=== PATIENT | male | born 1980 | race Two or more races ===

== ENCOUNTER 2016-09-28 13:43 | Emergency (ER) | payer OTHER ==
--- NOTE | 2016-09-28 15:44 | ED.ADGEN ---
Past Medical History Past Medical History: No Pertinent History Past Surgical History: Other Additional Past Surgical Histo: right rotator cuff Alcohol Use: None Drug Use: None Adult General Chief Complaint Chief Complaint: ABDOMINAL PAIN HPI HPI Patient is a 36 year old man who presents to the emergency department yet with a complaint of lower abdominal pain that began yesterday. Patient was diagnosed with hernias per report of the correctional officers and the patient. This was a workup performed at the correctional facility, patient has not had any imaging performed per his report. Patient states that his pain has been excruciating since last night, associated with nausea and vomiting yesterday, he has been able to pass stool, but only with a lot of pain. Last bowel movement was yesterday and was normal. He denies any fevers or chills, denies any chest pain or shortness of breath, any injuries, any weakness, numbness or tingling, and his blood any emesis or stool. He has not had previous surgeries on his abdomen. Review of Systems Review of Systems Constitutional: Denies fever or chills. [] Eyes: Denies change in visual acuity. [] HENT: Denies nasal congestion or sore throat. [] Respiratory: Denies cough or shortness of breath. [] Cardiovascular: Denies chest pain or edema. [] GI: Lower quadrant abdominal pain, nausea, vomiting, no bloody stools or diarrhea. : Denies dysuria. [] Musculoskeletal: Denies back pain or joint pain. [] Integument: Denies rash. [] Neurologic: Denies headache, focal weakness or sensory changes. [] Endocrine: Denies polyuria or polydipsia. [] Lymphatic: Denies swollen glands. [] Psychiatric: Denies depression or anxiety. [] Current Medications Current Medications Current Medications Medications (Trade) Dose Ordered Sig/Zack Start Time Stop Time Status Last Admin Dose Admin Dicyclomine HCl (Bentyl) 10 mg 1X ONCE 09/28/16 18:00 09/28/16 18:01 DC Fentanyl Citrate (Fentanyl 2ml Vial) 50 mcg PRN Q15MIN PRN 09/28/16 15:45 09/28/16 18:28 DC 09/28/16 17:49 50 MCG Iohexol (Omnipaque 240 Mg/ml) 30 ml 1X ONCE 09/28/16 16:15 09/28/16 16:16 DC 09/28/16 17:30 30 ML Iohexol (Omnipaque 300 Mg/ml) 75 ml 1X ONCE 09/28/16 16:15 09/28/16 16:16 DC 09/28/16 17:31 75 ML Ondansetron HCl (Zofran) 4 mg 1X ONCE 09/28/16 15:45 09/28/16 15:48 DC 09/28/16 16:10 4 MG Sodium Chloride 1,000 ml @ 1,000 mls/hr 1X ONCE 09/28/16 15:45 09/28/16 16:44 DC 09/28/16 16:09 1,000 MLS/HR Allergies Allergies Allergies Coded Allergies Type Severity Reaction Last Updated Verified No Known Drug Allergies 09/28/16 No Physical Exam Physical Exam Constitutional: Well developed, well nourished, appears uncomfortable, non- toxic appearance. [] HENT: Normocephalic, atraumatic, bilateral external ears normal, oropharynx moist, no oral exudates, nose normal. [] Eyes: PERRLA, EOMI, conjunctiva normal, no discharge. [] Neck: Normal range of motion, no tenderness, supple, no stridor. [] Cardiovascular:Heart rate regular rhythm, no murmur, S1, S2, rubs or gallops. [] Lungs & Thorax: Bilateral breath sounds clear to auscultation, no wheezing, rhonchi, rales. No chest or crepitus or tenderness. [] Abdomen: Bowel sounds normal, soft, patient with tenderness palpation in the bilateral regions, and across the pelvic region, difficult examination secondary to patient compliance with examination, bowel sounds are present in all 4 quadrants, no evidence of hernia and examination, patient noted to have an isolated slightly enlarged lymph node on the right side, which is mobile, minimally tender, approximately 1 cm, no external signs of trauma or abnormalities. Testicular exam unremarkable, patient is circumcised. Skin: Warm, dry, no erythema, no rash. [] Back: No tenderness, no CVA tenderness. [] Extremities: No tenderness, no cyanosis, no clubbing, ROM intact, no edema. [] Neurologic: Alert and oriented X 3, normal motor function, normal sensory function, no focal deficits noted. [] Psychologic: Affect normal, judgement normal, mood normal. [] Current Patient Data Vital Signs Vital Signs Date Time Temp Pulse Resp B/P (MAP) Pulse Ox O2 Delivery O2 Flow Rate FiO2 09/28/16 17:49 22 09/28/16 17:30 64 125/76 (92) 98 Room Air 09/28/16 13:45 98.3 98.3 Lab Values Laboratory Tests Test 09/28/16 14:02 09/28/16 17:15 White Blood Count 8.9 x10^3/uL (4.0-11.0) Red Blood Count 4.86 x10^6/uL (4.30-5.70) Hemoglobin 14.8 g/dL (13.0-17.5) Hematocrit 43.7 % (39.0-53.0) Mean Corpuscular Volume 90 fL (79-100) Mean Corpuscular Hemoglobin 31 pg (25-35) Mean Corpuscular Hemoglobin Concent 34 g/dL (31-37) Red Cell Distribution Width 13.0 % (11.5-14.5) Platelet Count 292 x10^3/uL (140-400) Neutrophils (%) (Auto) 65 % (31-73) Lymphocytes (%) (Auto) 27 % (24-48) Monocytes (%) (Auto) 6 % (0-9) Eosinophils (%) (Auto) 2 % (0-3) Basophils (%) (Auto) 1 % (0-3) Neutrophils # (Auto) 5.8 x10^3uL (1.8-7.7) Lymphocytes # (Auto) 2.4 x10^3/uL (1.0-4.8) Monocytes # (Auto) 0.5 x10^3/uL (0.0-1.1) Eosinophils # (Auto) 0.2 x10^3/uL (0.0-0.7) Basophils # (Auto) 0.0 x10^3/uL (0.0-0.2) Sodium Level 142 mmol/L (136-145) Potassium Level 4.4 mmol/L (3.5-5.1) Chloride Level 105 mmol/L (98-107) Carbon Dioxide Level 29 mmol/L (21-32) Anion Gap 8 (6-14) Blood Urea Nitrogen 17 mg/dL (8-26) Creatinine 0.9 mg/dL (0.7-1.3) Estimated GFR (Cockcroft-Gault) 96.0 BUN/Creatinine Ratio 19 (6-20) Glucose Level 88 mg/dL (70-99) Calcium Level 8.5 mg/dL (8.5-10.1) Total Bilirubin 0.8 mg/dL (0.2-1.0) Aspartate Amino Transferase (AST) 23 U/L (15-37) Alanine Aminotransferase (ALT) 22 U/L (16-63) Alkaline Phosphatase 59 U/L (46-116) Total Protein 7.5 g/dL (6.4-8.2) Albumin 4.1 g/dL (3.4-5.0) Albumin/Globulin Ratio 1.2 (1.0-1.7) Urine Collection Type Unknown Urine Color Yellow Urine Clarity Clear Urine pH 5.5 Urine Specific [place] 1.025 Urine Protein Negative mg/dL (NEG-TRACE) Urine Glucose (UA) Negative mg/dL (NEG) Urine Ketones (Stick) Negative mg/dL (NEG) Urine Blood Negative (NEG) Urine Nitrite Negative (NEG) Urine Bilirubin Negative (NEG) Urine Urobilinogen Dipstick 0.2 mg/dL (0.2 mg/dL) Urine Leukocyte Esterase Negative (NEG) Urine RBC 0 /HPF (0-2) Urine WBC 0 /HPF (0-4) Urine Bacteria 0 /HPF (0-FEW) Urine Mucus Mod /LPF Laboratory Tests 09/28/16 14:02 Laboratory Tests 09/28/16 14:02 EKG EKG Not indicated. [] Radiology/Procedures Radiology/Procedures [][facility] [address] [place], [place] [id number] IMAGING REPORT Signed PATIENT: JOEY OGDEN ACCOUNT: [id number] : 1980 LOCATION: ER AGE: 36 SEX: M EXAM STATUS: REG ER ORD. PHYSICIAN: BRITTANIE CLAUDIO DO REASON: lower abd pain/ inguinal hernia PROCEDURE: CT ABD PELV W/ORAL&IV CONTRAST Indication: Lower abdominal pain and swelling. Axial imaging through the abdomen and pelvis was performed after the administration of intravenous contrast. One or more of the following individualized dose reduction techniques were utilized for this examination: 1. Automated exposure control 2. Adjustment of the mA and/or kV according to patient size 3. Use of iterative reconstruction technique No prior studies are available for comparison. The lung bases are clear. The liver and gallbladder are unremarkable. The pancreas and spleen are unremarkable. No adrenal mass is detected. The kidneys are unremarkable. The aorta is nonaneurysmal. The small and large bowel loops are normal caliber. There is no ascites. The appendix is not well visualized but no inflammatory process is seen. The bladder and prostate are unremarkable. IMPRESSION: Unremarkable CT of the abdomen and pelvis. Electronically signed by: Kasi Pierre MD (09/28/2016 5:48 PM) [facility] DICTATED and SIGNED BY: KASI PIERRE MD DATE: 09/28/161745 CC: BRITTANIE CLAUDIO DO; NO PCP ~ Course & Med Decision Making Course & Med Decision Making Pertinent Labs and Imaging studies reviewed. (See chart for details) Due to patient's complaints and pain, CT imaging of the abdomen and pelvis obtained, reveal any evidence of concerning findings. No hernias, or evidence of entrapment or other abnormalities identified. Laboratory studies were also unremarkable. Patient received pain medication in the ED, had no further no vomiting, but no signs remained within normal limits. I did discuss findings with the patient, I also printed off copies of the CT, and laboratory studies, and patient was also given a follow-up contact with Dr. Pratt of general surgery, instructed correctional facility officers that the patient would need follow-up with surgery for additional evaluation symptoms persist, there is no evidence of any acutely concerning findings at this time. I was not able to identify any hernias that would require reduction in the ED, or any other concerning findings on examination. Although patient is tender in the area, only abnormalities identified with isolated lymph node as stated. I did discuss this with the patient, he voices understanding, as do the correctional officers at bedside. Patient given a prescription for Bentyl and Zofran, to use as needed , also clear and detailed follow-up and return instructions, with which she and correctional officers voiced understanding and agreement. Patient discharged in stable condition with plan as above. Dragon Disclaimer Dragon Disclaimer This electronic medical record was generated, in whole or in part, using a voice recognition dictation system. Departure Impression: Primary Impression: Abdominal pain Disposition: HOME, SELF-CARE Condition: IMPROVED Scripts Dicyclomine Hcl (BENTYL) 10 Mg Capsule 10 MG PO QID Y for ABDOMINAL PAIN, #12 TAB Prov: BRITTANIE CLAUDIO DO 09/28/16 BRITTANIE CLAUDIO DO Sep 28, 2016 15:44
[2016-09-28] MEDS ORDERED: ONDANSETRON PF 4 MG/2 ML VIAL. IV ONE (15:45)
[2016-09-28] MEDS ORDERED: IV NORMAL SALINE 1000ML BAG 1,000 ML IV ONE (15:45)
[2016-09-28] MEDS: fentaNYL PF VIAL 100 MCG/2 ML VIAL IV PRN ×3 (16:10→17:49)
[2016-09-28] MEDS ORDERED: IOHEXOL 300 MG/ML 75 ML VIAL IV ONE (16:15)
[2016-09-28] MEDS ORDERED: IOHEXOL 240 MG/ML 50ML VIAL. PO ONE (16:15)
[2016-09-28 16:29] LABS: BASO % 1 % (0-3); EOS % 2 % (0-3); HEMATOCRIT 43.7 % (39.0-53.0); HEMOGLOBIN 14.8 g/dL (13.0-17.5); LYMPH # 2.4 x10^3/uL (1.0-4.8); LYMPH % 27 % (24-48); MEAN CORPUSCULAR HEMOGLOBIN 31 pg (25-35); MEAN CORPUSCULAR HGB CONC 34 g/dL (31-37); MEAN CORPUSCULAR VOLUME 90 fL (79-100); MONO % 6 % (0-9); NEUT % 65 % (31-73); PLATELET COUNT 292 x10^3/uL (140-400); RED BLOOD COUNT 4.86 x10^6/uL (4.30-5.70); WHITE BLOOD COUNT 8.9 x10^3/uL (4.0-11.0)
[2016-09-28 16:38] LABS: CALCIUM 8.5 mg/dL (8.5-10.1); CREATININE 0.9 mg/dL (0.7-1.3); POTASSIUM 4.4 mmol/L (3.5-5.1)
[2016-09-28 16:44] LABS: ALBUMIN 4.1 g/dL (3.4-5.0); ALBUMIN/GLOBULIN RATIO 1.2 (1.0-1.7); TOTAL BILIRUBIN 0.8 mg/dL (0.2-1.0); TOTAL PROTEIN 7.5 g/dL (6.4-8.2)
[2016-09-28 17:30] VITALS: BP 125/76
[2016-09-28 17:33] LABS: BILIRUBIN,URINE NEGATIVE (NEG); GLUCOSE,URINE NEGATIVE (NEG); NITRITE,URINE NEGATIVE (NEG); PH,URINE 5.5; PROTEIN,URINE NEGATIVE (NEG-TRACE); UROBILINOGEN,URINE 0.2 mg/dL (0.2 mg/dL)
[2016-09-28 17:38] LABS: BACTERIA,URINE 0 /HPF (0-FEW); RBC,URINE 0 /HPF (0-2); WBC,URINE 0 /HPF (0-4)
--- NOTE | 2016-09-28 17:51 | RAD ---
Indication: Lower abdominal pain and swelling. Axial imaging through the abdomen and pelvis was performed after the administration of intravenous contrast. One or more of the following individualized dose reduction techniques were utilized for this examination: 1. Automated exposure control 2. Adjustment of the mA and/or kV according to patient size 3. Use of iterative reconstruction technique No prior studies are available for comparison. The lung bases are clear. The liver and gallbladder are unremarkable. The pancreas and spleen are unremarkable. No adrenal mass is detected. The kidneys are unremarkable. The aorta is nonaneurysmal. The small and large bowel loops are normal caliber. There is no ascites. The appendix is not well visualized but no inflammatory process is seen. The bladder and prostate are unremarkable. IMPRESSION: Unremarkable CT of the abdomen and pelvis. Electronically signed by: Kasi Pierre MD (09/28/2016 5:48 PM) [facility]
[2016-09-28] MEDS ORDERED: DICYCLOMINE HCL 10 MG CAPSULE PO ONE (18:00)
[2016-09-28] MEDS ORDERED: DICY10CA53 PO (18:04)
== END 2016-09-28 18:05 | disposition home or self-care (01) ==
LOC: EEVIPCON 13:43 → ER 13:43
DX: R10.30 Lower abdominal pain, unspecified (principal); R11.2 Nausea with vomiting, unspecified
CPT/HCPCS: 36415; 74177; 80053; 81001; 85027; 96361; 96374; 96375; 96376; 99285; J2405; J3010; J7030; Q9966; Q9967